=== PATIENT | male | born 1970 | race Caucasian/White ===

== ENCOUNTER 2022-03-29 00:28 | Observation (INO) ==
[2022-03-29] MEDS ORDERED: Albuterol/Ipratropium NEB.SOL (2.5/0.5 MG) 3 ML NEB.SOLN INH ONE ×2 (00:47→10:21)
[2022-03-29] MEDS ORDERED: methylPREDNISolone SOD SUCC 125 mg 2 ML VIAL IV ONE (00:48)
[2022-03-29] MEDS ORDERED: Magnesium Sulfate 2 gm BAG 2 GM/50 ML BAG IVPB ONE (00:49)
[2022-03-29 00:52] LABS: ABS Eosinophils 0.2 10^3/ul (0-0.6); ABS Lymphocytes 0.7 10^3/ul (1.0-4.8); ABS Monocytes 0.7 10^3/ul (0-0.8); ABS Neutrophils 11.9 10^3/ul (1.5-7.7); Eosinophil % 1.4 %; Hematocrit 44 % (42-52); Hemoglobin 14.7 g/dL (14.0-18.0); Lymphocyte % 4.9 %; Mean Corpuscular HGB Conc 34 g/dL (31-36); Mean Corpuscular Hemoglobin 31 pg (27-31); Mean Corpuscular Volume 92 fL (80-94); Mean Platelet Volume 8.2 fL (7.4-10.4); Nucleated Red Blood Cells % 0.1; Platelet Count 324 10^3/uL (150-450); Red Blood Count 4.74 10^6 /uL (4.18-5.48); Red Cell Distribution Width 14 % (10-15); White Blood Count 13.4 10^3/uL (3.5-10.8)
[2022-03-29 01:10] LABS: INR 1.19 (0.88-1.18)
[2022-03-29 01:15] LABS: Albumin 4.4 g/dL (3.2-5.2); Albumin/Globulin Ratio 1.6 (1-3); Globulin 2.8 g/dL (2-4); Potassium 4.7 mmol/L (3.5-5.0); Total Bilirubin 0.5 mg/dL (0.2-1.0); Total Protein 7.2 g/dL (6.4-8.9); eGFR CKD-EPI 107.3 (>60)
[2022-03-29] MEDS ORDERED: Levalbuterol 1.25MG/0.5ML NEB.SOL INH ONE (02:15)
[2022-03-29 02:34] LABS: High Sensitivity Troponin 1 Hr 82 pg/mL (<20)
[2022-03-29 03:45] LABS: Magnesium 2.1 mg/dL (1.9-2.7); Phosphorus 5.8 mg/dL (2.5-5.0)
[2022-03-29 04:02] LABS: TSH Ultra Thyroid Stim Horm 1.46 mcIU/mL (0.34-5.60)
[2022-03-29 04:03] LABS: Free T4 0.74 ng/dL (0.61-1.12)
[2022-03-29 04:25] LABS: High Sensitivity Troponin 3 Hr 90 pg/mL (<20)
[2022-03-29] MEDS ORDERED: Albuterol 2.5mg/3 ml (0.083%) NEB.SOLN INH PRN (04:50)
[2022-03-29] MEDS ORDERED: Enoxaparin 40 MG/0.4 ML SYR SUBCUT SCH (06:00)
[2022-03-29 06:33] LABS: ABS Lymphocytes 0.3 10^3/ul (1.0-4.8); ABS Monocytes 0.1 10^3/ul (0-0.8); ABS Neutrophils 11.1 10^3/ul (1.5-7.7); Eosinophil % 0.3 %; Hematocrit 45 % (42-52); Hemoglobin 14.9 g/dL (14.0-18.0); Lymphocyte % 2.9 %; Mean Corpuscular HGB Conc 34 g/dL (31-36); Mean Corpuscular Hemoglobin 31 pg (27-31); Mean Corpuscular Volume 93 fL (80-94); Mean Platelet Volume 8.1 fL (7.4-10.4); Nucleated Red Blood Cells % 0.1; Platelet Count 327 10^3/uL (150-450); Red Blood Count 4.82 10^6 /uL (4.18-5.48); Red Cell Distribution Width 14 % (10-15); White Blood Count 11.5 10^3/uL (3.5-10.8)
[2022-03-29] MEDS ORDERED: Albuterol/Ipratropium NEB.SOL (2.5/0.5 MG) 3 ML NEB.SOLN INH SCH (07:00)
[2022-03-29 07:36] LABS: Potassium 5.2 mmol/L (3.5-5.0); eGFR CKD-EPI 108.5 (>60)
[2022-03-29] MEDS ORDERED: Albuterol/Ipratropium NEB.SOL (2.5/0.5 MG) 3 ML NEB.SOLN INH PRN (08:11)
[2022-03-29] MEDS ORDERED: Mometasone/Formoter 200/5 MDI INH SCH (08:30)
[2022-03-29] MEDS: Albuterol HFA INHALER 8 gm MDI INH SCH ×2 (11:25→14:19)
[2022-03-29] MEDS ORDERED: methylPREDNISolone SOD SUCC 40 mg/ml 1 ml VIAL IV ONE (12:26)
[2022-03-29 15:56] VITALS: BP 136/94
== END 2022-03-29 15:56 | disposition home or self-care (01) ==
LOC: EDHOLD 00:28 → ED 00:28 → SUATTDRO 02:48 → EDHOLD 15:54
PROVIDERS: ADMIT Internal Medicine; ATTEND Hospitalist